=== PATIENT | male | born 1975 | race Caucasian/White ===

== ENCOUNTER 2022-03-07 11:26 | Emergency (ER) | payer OTHER ==
[2022-03-07 11:48] VITALS: BP 137/77; PULSE 63
== END 2022-03-07 12:10 | disposition home or self-care (01) ==
LOC: KA.ED 11:26
DX: S50.12XA Contusion of left forearm, initial encounter (principal); Z79.899 Other long term (current) drug therapy; W22.09XA Striking against other stationary object, initial encounter
CPT/HCPCS: 73090-LT; 99283